=== PATIENT | male | born 1960 | race Caucasian/White ===

== ENCOUNTER → 2017-01-31 06:42 | Emergency (ER) | payer BC ==
[~2017-01-31 06:42] MED LIST: EPINEPHrine SYR 0.1 MG/ML* (1:10,000) SYRINGE ONE
[2017-01-31 07:13] VITALS: BP 00/00
--- NOTE | 2017-01-31 08:02 | ED ---
Alexia Madera Alok, scribed for Noel Che MD on 01/31/17 at 0651 . Cardiac Resuscitation - HPI Summary HPI Summary: 56M presents to the ED in cardiac arrest. ABC alert called at 0640. Pt was reportedly fell asleep on the couch, came to bed at 0530, and then collapsed while putting on his Cpap mask. Patient remained unresponsive and called EMS. EMS administered 6 shots of epinephrine, 1 bicarb, and 1 DSO. Pt presents with semi-automatic CPR and gabriela airway defibrillator. Chest compressions and AED administered at ED. Time of called at 0645. PMHx includes pacemaker, CHF, lung biopsy, sleep apnea. 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, EMS Hx From Patient Unobtainable Due To: Extremis Onset/Duration: Minutes/Hours: - 1 hour 5 minutes Arrest Witnessed: Yes Down-time Before Basic Life Support Initiated: Down-time before BLS initiated: - 15 minutes Down-time Before Advanced Life Support Initiated: Down-time before ALS initiated : - 1 hour 5 minutes - Prehospital Findings Disability/Neurologic: Unresponsive - Prehospital Intervention Circulation/Rhythm: Chest Compressions - semi-automatic auto pulse, Defibrillation: - gabriela airway, Epinephrine: - x6 - Additional Pertinent History Total Down Time [employer] (minutes): 65 - Allergies/Home Medications Allergies/Adverse Reactions: Allergies Allergy/AdvReac Type Severity Reaction Status Date / Time No Known Allergies Allergy Verified 03/01/16 10:45 - Past Medical History Past Medical History: Coronary Artery Disease - Family History Family History: Other: - no CAD, DM, HTN - Social History Social History: Lives with Family - Review of Systems Review of Systems: Unobtainable Due to Extremis Physical Examination - Physical Examination Completion Of Physical Exam Limited Due To: Extremis Resuscitation Termination Time: 06:45 Resuscitation: Unsuccessful - ED Findings Breathing: Breath Sounds Equal Circulation/Rhythm: Spontaneous Pulses Absent Disability/Neurological: Unresponsive - no neurological activity - ED Intervention Circulation/Rhythm: Chest Compressions, Defibrillation: - ED Response Breathing: Equal Breath Sounds Circulation/Rhythm: Spontaneous Pulses Absent - chest silent - ED Additional Pertinent Findings Additional Pertinent Findings: Other: - No lividity, no trauma - Glascow Coma Score Eye Openin - None - eye fully dialated, no coronary reflex Motor: 1 - None Verbal: 1 - None Coma Scale Total: 3 Diagnostics - Vital Signs Vital Signs Temp Pulse Resp BP Pulse Ox 01/31/17 06:45 0 F 0 0 00 0 - Laboratory Lab Statement: Any lab studies that have been ordered have been reviewed, and results considered in the medical decision making process. Cardiac Resus. Course/Dx - Course Course Of Treatment: pt pronounced at 06:45 a.m. family notified. - Cardiac Resuscitation Differential Dx/HPI/PQRI: Acute Myocardial Infarct, Asystole, Sudden - critical care less than 30 minutes - Diagnoses Provider Diagnoses: Cardiac arrest During the Visit The Following Alert/Code Occurred: ABC Alert - called at 0640 Discharge - Discharge Plan Condition: Disposition: The documentation as recorded by the Alexia reed Alok accurately reflects the service I personally performed and the decisions made by Chinedu sorto Drew, MD.
== END | disposition expired ==
LOC: EDUNIT# → EDBD → ED 06:42
DX: I46.9 Cardiac arrest, cause unspecified (principal)
CPT/HCPCS: 99285; J0171